=== PATIENT | male | born 1955 | race Caucasian/White ===

== ENCOUNTER 2024-12-05 03:17 | Emergency (ER) | payer MEDICARE, SELFPAY ==
[2024-12-05] VITALS (17 sets, daily range): BP systolic 156–158; BP diastolic 94–98; PULSE 60–119; RESP 12–19; TEMP 36.6; O2SAT 93–98
--- NOTE | 2024-12-05 03:15 | DI.RAD_ITS ---
Exam(s) XR CHEST 2V PA LATERAL EXAM: XR CHEST 2V PA LATERAL CLINICAL HISTORY: afib TECHNIQUE: 2D digital imaging was performed. Two views. COMPARISON: No exams were available for comparison FINDINGS: HEART: Normal size. Aorta: Not dilated. PULMONARY VASCULATURE: Normal. MEDIASTINUM: Unremarkable. LUNGS: Suboptimally inflated but clear. The right diaphragm is elevated. PLEURAL SPACE: Tiny right pleural effusion. No pneumothorax. BONE:Bilateral shoulder prostheses. SOFT TISSUES: Unremarkable. IMPRESSION: Tiny right pleural effusion. The preliminary [facility] report was reviewed. DATA REPOSITORY: RADIATION DOSE DELIVERED:
--- NOTE | 2024-12-05 03:15 | RT.EKG_ITS ---
APPROVED REPORT Exam: Resting ECG Reason for Exam: tachy, afib Patient Location: E HR:111 bpm ECG Measurements Heart Rate 111 AXIS MT [id number] P [id number] QRSd 100 QRS -25 QT 355 T 29 QTc 484 Conclusion Atrial fibrillation...? atrial activity Ventricular premature complex...V complex w/ short R-R interval Incomplete RBBB and LAFB...axis(240,-40), S>R II III aVF no ST segment or T wave abnormalities to suggest occlusive [place]
--- NOTE | 2024-12-05 03:30 | RT.EKG_ITS ---
APPROVED REPORT Exam: Resting ECG Reason for Exam: Afib Patient Location: E HR:74 bpm ECG Measurements Heart Rate 74 AXIS ID 181 P 48 QRSd 102 QRS -36 QT 415 T 12 QTc 462 Conclusion Sinus rhythm...normal P axis, V-rate 60- 99 Left axis deviation...QRS axis (-30,-90)
[2024-12-05 03:44] LABS: Abs Immature Grans 0.02 10^3/uL (0.0-0.06); HCT 44.6 % (40.0-50.0); HGB 14.9 g/dL (13.5-17.5); Immature Grans % 0.3 %; MCH 30.2 pg (27.0-33.0); MCHC 33.4 % (32.0-36.0); MCV 91 fL (80-95); MPV 9.2 fL (8.0-11.0); Platelet Count 149 10^3/uL (130-400); RBC 4.93 10^6/uL (4.36-5.78); RDW 13.0 % (11.8-14.1); RDW-SD 42.9 fL; WBC 5.95 10^3/uL (4.4-10.8)
--- NOTE | 2024-12-05 03:51 | W.ED.GENAD ---
Discharge Plan Disposition Patient Disposition: Home Condition: Good Discharge Details Clinical Impression: Paroxysmal A-fib, D-dimer, elevated Primary Care Provider: [place] ED Provider: Kaylah Schroeder Home Meds and New Rx's Prescriptions: Continued omeprazole 20 mg capsule,delayed release(DR/EC) 20 mg PO DAILY tamsulosin 0.4 mg capsule 0.4 mg PO DAILY finasteride 5 mg tablet 5 mg PO DAILY aspirin 81 mg capsule 81 mg PO DAILY coenzyme Q10 [CoQ-10] 100 mg capsule 300 mg PO BID ascorbic acid (vitamin C) [C-500] 500 mg tablet 500 mg PO DAILY Berberine ES-5 200 mg capsule 1,200 mg PO DAILY resveratrol 250 mg capsule 250 mg PO DAILY omega 3,6,1-poqxpc-wtae-fish 1,233 mg capsule 1 cap PO DAILY Discharge Instructions Instructions: Atrial Fibrillation and Atrial Flutter ED Additional Instructions: Avoid alcohol as this can provoke atrial fibrillation. Call your safety relief valve technician first thing Friday to schedule an appointment for as soon as possible to followup on your visit here. At that visit please discuss your atrial fibrillation and further discuss whether you should start taking a blood thinner. Your screening tests for blood clots was positive- this has a high false positive rate but it is possible you do have a blood clot, the most common location is in the legs. You should get an ultrasound to look for this. I have ordered one for you here- call radiology (see the handout you were given) on Friday to see when you should come in for this. After your ultrasound please come to the ED for results. If you choose not to have this done here, please mention it to your safety relief valve technician when you call them on Friday so they can arrange for an outpatient study. If that is not possible please call your primary care doctor on Friday for the same reason. Return to the emergency department for new or worsening symptoms including chest pain, shortness of breath, feel like you are going to pass out, if you feel like your heart is racing again, you have numbness or weakness, severe headache, vertigo, or if you have any other concerns. Discharge Orders Other Ambulatory Orders: US extremity venous BI (Routine) Timeframe: 1 Day Facility: [facility] - Location: DIAGNOSTIC IMAGING Ordered By: Kaylah Schroeder [facility] General Mode of arrival: ambulatory. Date/Time Provider Initiated Documentation: 12/05/24 03:23. Limitations to Documentation: no limitations. Information obtained by: patient. HPI Narrative: 69yo M with hx GERD, CAD, HLD, presenting for palpitations. Was walking up the stairs when he began to feel his HR racing; watch noted a rapid heart rate. Had a similar episode a week or two ago for which he saw his safety relief valve technician with plan for outpatient erp implementation consultant but has not started this yet. No chest pain, shortness of breath, or lightheadedness with either episode. Otherwise has felt entirely well and normal today. Did have an alcoholic beverage this evening, as well as several the day of his prior episodes. Not a daily drinker, ~ /week. No hx of HTN, DM, CHF, DE, CVA/TIA, blood clots. Otherwise in his usual state of health with no fevers, chills, rash, nausea, vomiting, pleuritic pain, recent illness, abdominal pain, diarrhea, lower extremity edema, or other concerns. Related Data Home Medications ?Medication ?Instructions ?Recorded ?Confirmed ascorbic acid (vitamin C) 500 mg 500 mg PO DAILY 12/05/24 12/05/24 tablet (C-500) aspirin 81 mg capsule 81 mg PO DAILY 12/05/24 12/05/24 coenzyme Q10 100 mg capsule 300 mg PO BID 12/05/24 12/05/24 (CoQ-10) dihydroberberine 200 mg capsule 1,200 mg PO DAILY 12/05/24 12/05/24 (Berberine ES-5) finasteride 5 mg tablet 5 mg PO DAILY 12/05/24 12/05/24 omega 3,6,9-borage seed 1 cap PO DAILY 12/05/24 12/05/24 oil-flaxseed oil-fish oil 1,233 mg capsule omeprazole 20 mg capsule,delayed 20 mg PO DAILY 12/05/24 12/05/24 release resveratrol 250 mg capsule 250 mg PO DAILY 12/05/24 12/05/24 tamsulosin 0.4 mg capsule 0.4 mg PO DAILY 12/05/24 12/05/24 General Stated Complaint: Arrhythmia IRIS: 3 Review of Systems Narrative: see HPI Exam Narrative Exam Narrative: General: Alert, well appearing, well nourished, in no acute distress. Head: Normocephalic, atraumatic Neck: Trachea midline, ?Neck supple. ENT: ?MMM.? Cardiac: ?RRR, no murmurs appreciated Resp: No respiratory distress. CTAB. Abd: ?Soft, non-distended, nontender Extremities: ?No deformities.? No peripheral edema. Neurologic: GCS 15. ? Moves all extremities freely against gravity Course Vital Signs Vital signs: Vital Signs Temperature 36.6 C 12/05/24 03:21 Pulse 113 H 12/05/24 03:21 Respiratory Rate 18 12/05/24 03:21 Pulse Oximetry 98 12/05/24 03:21 Temperature 36.6 C 12/05/24 03:21 Temperature Source Oral 12/05/24 03:21 Pulse 113 H 12/05/24 03:21 Respiratory Rate 18 12/05/24 03:21 Blood Pressure 156/94 H 12/05/24 03:31 Blood Pressure Mean 114 12/05/24 03:31 Blood Pressure Position Supine 12/05/24 03:21 Pulse Oximetry 98 12/05/24 03:21 Oxygen Delivery Method Room Air 12/05/24 03:21 Oxygen Flow Rate 0 12/05/24 03:21 Pain Level 0 12/05/24 03:21 Lab/Test Results Lab/Test Results: Laboratory Tests Range/Units 12/05/24 03:37 WBC (4.4-10.8) 10^3/uL 5.95 RBC (4.36-5.78) 10^6/uL 4.93 Hgb (13.5-17.5) g/dL 14.9 Hct (40.0-50.0) % 44.6 MCV (80-95) fL 91 MCH (27.0-33.0) pg 30.2 MCHC (32.0-36.0) % 33.4 RDW (11.8-14.1) % 13.0 Plt Count (130-400) 10^3/uL 149 MPV (8.0-11.0) fL 9.2 Immature Gran % % 0.3 Neutrophils % % 55.6 Lymphocytes % % 31.3 Monocytes % % 9.7 Eosinophils % % 2.4 Basophils % % 0.7 Nucleated RBC % (0.0-0.3) % 0.0 Absolute Neutrophils (1.2-6.7) 10^3/uL 3.31 Absolute Lymphocytes (1.2-3.4) 10^3/uL 1.86 Absolute Monocytes (0.1-0.8) 10^3/uL 0.58 Absolute Eosinophils (0.0-0.7) 10^3/uL 0.14 Absolute Basophils (0.0-0.2) 10^3/uL 0.04 Medical Decision Making 69yo M with hx GERD, CAD, HLD, presenting for palpitations. Was walking up the stairs when he began to feel his HR racing; watch noted a rapid heart rate. Had a similar episode a week or two ago for which he saw his safety relief valve technician with plan for outpatient erp implementation consultant but has not started this yet. No chest pain, shortness of breath, or lightheadedness with either episode. Did have ETOH before both events. Otherwise entirely in his usual state of health. HR 110's-120 on arrival, vital signs otherwise reassuring on arrival, on the monitor irregular and appears to be afib. EKG on arrival afib, rate 110's, no ST segment or T wave abnormalities to suggest occlusive DE. Well appearing on my assessment shortly thereafter, HR regular, appears sinus on the monitor. Repeat EKG obtained and is sinus with rate in 70's. Very well appearing on exam, lungs CTAB. Not septic. Aside from ETOH, no clear provoking factors on history; will evaluate with labs, CXR. -Labs reviewed as below, CBC reassuring with no leukocytosis or anemia, CMP with borderline hyponatremia at 134 and no actionable abnormalities, Mg normal, TSH normal, coags normal, dimer elevated at ~1000 (will get CTA), BNP not suggestive of heart failure, initial troponin 14 with one hour repeat 13 (no signficant change); would not further puruse ACS/trend troponins. -CXR independently reviewed; no focal pneumonia or pneumothorax on my view, radiology read with trace pleural effusions. -CT independently reviewed; no large saddle embolus and no pleural effusions on my view (? atelectasis right lung base), radiology read with no acute findings. On reassessment he remains well appearing, symptom free, HR in 60's -70's and NSR on monitor. [id number] score 1 (~0.5-1%/year risk), HAS-BLED 2 (moderate risk of major bleeding, ~2/100 pt years). Would be reasonable to start DOAC in the ED, especially with elevated dimer of unknown etiology. Shared decision making with patient; he is opposed to starting AC at this time but is willing to discuss further with his safety relief valve technician which I think is reasonable, certainly low absolute risk of thromboembolic event in the next 48 hours. Will get outpatient DVT ultrasound (though no clincal s/s of DVT, would also not empirically treat for this at this time). Will discharge home to close outpatient followup with his safety relief valve technician; he was advised to call on Friday (states he is usually able to get in to see him within a week). Discharged home; discharge instructions and return precautions were reviewed with patient who verbalized understanding. All questions were answered and he is in full agreement with the plan. IMPRESSION: 1. No acute findings to explain reported symptoms. 2. Nonacute findings as outlined above. Lab Data Lab results reviewed: Yes I reviewed the patient's lab results. Labs: Laboratory Tests Range/Units 12/05/24 12/05/24 03:37 04:40 WBC (4.4-10.8) 10^3/uL 5.95 RBC (4.36-5.78) 10^6/uL 4.93 Hgb (13.5-17.5) g/dL 14.9 Hct (40.0-50.0) % 44.6 MCV (80-95) fL 91 MCH (27.0-33.0) pg 30.2 MCHC (32.0-36.0) % 33.4 RDW (11.8-14.1) % 13.0 Plt Count (130-400) 10^3/uL 149 MPV (8.0-11.0) fL 9.2 Immature Gran % % 0.3 Neutrophils % % 55.6 Lymphocytes % % 31.3 Monocytes % % 9.7 Eosinophils % % 2.4 Basophils % % 0.7 Nucleated RBC % (0.0-0.3) % 0.0 Absolute Neutrophils (1.2-6.7) 10^3/uL 3.31 Absolute Lymphocytes (1.2-3.4) 10^3/uL 1.86 Absolute Monocytes (0.1-0.8) 10^3/uL 0.58 Absolute Eosinophils (0.0-0.7) 10^3/uL 0.14 Absolute Basophils (0.0-0.2) 10^3/uL 0.04 PT (9.1-11.1) sec 9.9 INR (0.9-1.1) 1.0 APTT (20.6-30.2) sec 27.1 D-Dimer (<500) ng/mlFEU 1098 H Sodium (136-145) mmol/L 134 L Potassium (3.5-5.1) mmol/L 3.5 Chloride (98-107) mmol/L 102 Carbon Dioxide (21.0-32.0) mmol/L 27.8 Anion Gap (3-11) mmol/L 4.2 BUN (7-18) mg/dL 22 H Creatinine (0.70-1.30) mg/dL 1.1 Est GFR (CKD-EPI 2020) (mL/min/1.73m2) 72.22 Glucose (74-106) mg/dL 102 Calcium (8.5-10.1) mg/dL 8.7 Magnesium (1.8-2.4) mg/dL 2.0 Total Bilirubin (0.2-1.0) mg/dL 0.9 AST (15-37) U/L 30 ALT (16-63) U/L 42 Alkaline Phosphatase (46-116) U/L 97 Troponin I (<or=76) ng/L 14 13 NT-Pro-B Natriuret Pep (<300) pg/mL 50 Total Protein (6.4-8.2) g/dL 6.9 Albumin (3.4-5.0) g/dL 3.6 TSH (0.36-3.74) uIU/mL 3.05 PFSH All Active Problems (Updated 12/05/24 @ 05:28 by Kaylah Schroeder MD) D-dimer, elevated (Acute) Paroxysmal A-fib (Acute) Social History Smoking/Tobacco Use Status: Never Smoking risk assessment performed?: Yes Alcohol Intake: current Alcohol Intake frequency: a few times a month Alcohol type: beer Drug use: Never Substance use type: does not use Housing: house Do you feel safe at home: Yes Do you feel safe in your relationship?: Yes
[2024-12-05 03:57] LABS: INR 1.0 (0.9-1.1); PTT Activated 27.1 sec (20.6-30.2); Prothrombin Time 9.9 sec (9.1-11.1)
--- NOTE | 2024-12-05 04:00 | DI.CT_ITS ---
Exam(s) CT CHEST PE CTA EXAM: CT CHEST PE CTA CLINICAL HISTORY: new afib, + dimer. TECHNIQUE: Imaging Protocol: Axial CT angiography was performed with multi- slice acquisition and multi-planar reconstructions as well as axial, coronal and sagittal MIP reconstructions. Computer aided detection (CAD) was utilized. CONTRAST MATERIAL: Intravenous: Omnipaque 350 Contrast volume:100 ml COMPARISON: CR,XR XR CHEST 2V PA LATERAL from 12/05/2024 FINDINGS: Pulmonary Arteries: No evidence of filling defect to suggest pulmonary emboli. Mediastinum and Michell: No dominant adenopathy or fluid collection. Pulmonary parenchyma: The lungs are expiratory. Right basilar atelectasis. No consolidation or dominant measurable mass. Pleura: No effusion or pneumothorax. Slight blunting of the lateral right costophrenic angle but no evidence of effusion. Heart: The heart is not dilated. Moderate coronary artery calcifications are seen. Aorta: Thoracic aorta non-dilated. No dissection. Upper abdomen: No acute findings. No obstructing stone at the upper pole of the left kidney. The liver does not appear enlarged. The right diaphragm is elevated. There is a large amount of intra-abdominal fat. Bones: Bilateral shoulder prostheses. Tubes, Catheters, and Lines: None Soft tissues: Unremarkable. IMPRESSION: No evidence of pulmonary embolism. Elevated right diaphragm with adjacent atelectasis. No evidence of effusion. The preliminary [facility] report was reviewed. RADIATION DOSE DELIVERED: Total DLP DATA REPOSITORY: All CT scans at this facility are submitted to the National Radiology Data Registry (NRDR) Dose Index Registry (DIR) with the [employer] (ACR). RADIATION OPTIMIZATION: All CT scans at this facility use at least one of these dose optimization techniques: automated exposure control; mA and/or kV adjustment per patient size (includes targeted exams where dose is matched to clinical indication); or iterative reconstruction.
[2024-12-05 04:03] LABS: Troponin I 14 ng/L (<or=76)
[2024-12-05 04:08] LABS: D-Dimer 1098 ng/mlFEU (<500)
[2024-12-05 04:10] LABS: ALT 42 U/L (16-63); AST 30 U/L (15-37); Albumin 3.6 g/dL (3.4-5.0); Alkaline Phosphatase 97 U/L (46-116); Anion Gap 4.2 mmol/L (3-11); BUN 22 mg/dL (7-18); Bilirubin, Total 0.9 mg/dL (0.2-1.0); CO2 27.8 mmol/L (21.0-32.0); Calcium 8.7 mg/dL (8.5-10.1); Chloride 102 mmol/L (98-107); Estimated GFR 72.22 (mL/min/1.73m2); Glucose 102 mg/dL (74-106); Magnesium 2.0 mg/dL (1.8-2.4); NT-proBNP 50 pg/mL (<300); Potassium 3.5 mmol/L (3.5-5.1); Sodium 134 mmol/L (136-145); TSH (W/Ref FT4) 3.05 uIU/mL (0.36-3.74); Total Protein 6.9 g/dL (6.4-8.2)
[2024-12-05] MEDS: Normal Saline - Diluent 50 ML VIAL IJ (04:34)
[2024-12-05] MEDS: Omnipaque 350 MG/ML 100 ML BTL IJ (04:34)
[2024-12-05] MEDS: Normal Saline Flush 10 ML SYR IVP (04:34)
--- NOTE | 2024-12-05 04:36 | DI.[facility]_ITS ---
PROCEDURE INFORMATION: Exam: XR Chest Exam date and time: 12/05/2024 4:01 AM Age: 69 years old Clinical indication: Other: Afib TECHNIQUE: Imaging protocol: Radiologic exam of the chest. Views: 2 views. COMPARISON: No relevant prior studies available. FINDINGS: Lungs: No focal consolidation seen. Pleural spaces: Trace bilateral pleural effusions. Heart/Mediastinum: No cardiomegaly. Diaphragm: Elevated hemidiaphragm. Bones/joints: Bilateral shoulder prostheses. IMPRESSION: Trace pleural effusions. Dictated and Authenticated by: Shanae Jonier MD. Orderin Elda Adrian MD
--- NOTE | 2024-12-05 04:56 | DI.[facility]_ITS ---
PROCEDURE INFORMATION: Exam: CTA Chest With Contrast Exam date and time: 12/05/2024 4:29 AM Age: 69 years old Clinical indication: Other: New afib, + dimer TECHNIQUE: Imaging protocol: Computed tomographic angiography of the chest with contrast. Exam focused on the arteries. 3D rendering (Not supervised by radiologist): MIP and/or 3D reconstructed images were created by the technologist. Contrast material: OMNI 350; Contrast volume: 100 ml; Contrast route: INTRAVENOUS (IV); COMPARISON: No relevant prior studies are available for comparison. FINDINGS: Limitations: Artifact from metallic hardware limits evaluation of the surrounding tissues. Mild motion artifact. Pulmonary arteries: No pulmonary embolus appreciated. Aorta: No thoracic aortic aneurysm seen. Lungs: Ground-glass opacity at the right lung base, likely underinflation. Pleural spaces: No pleural effusion. Heart: No pericardial effusion. Coronary arteries: Coronary artery calcifications. Lymph nodes: No acute abnormality seen. Diaphragm: Elevated right hemidiaphragm. Kidneys: Nonobstructing right renal calculus. Bones/joints: No acute pertinent abnormality seen. Soft tissues: No acute pertinent abnormality seen. IMPRESSION: 1. No acute findings to explain reported symptoms. 2. Nonacute findings as outlined above. Dictated and Authenticated by: Shanae Joiner MD. Orderin Elda Adrian MD
[2024-12-05 05:13] LABS: Troponin I 13 ng/L (<or=76)
--- NOTE | 2024-12-06 09:37 | NUR.NOTE ---
Nursing Note: received call from patient requesting his outpatient ultrasound order be sent to [facility] in [place], [place]. Order was faxed to [phone]
== END 2024-12-05 05:28 | disposition home or self-care (01) ==
PROVIDERS: Emergency Provider Student in an Organized Health Care Education/Training Program; PCP Family Medicine
DX: I48.0 Paroxysmal atrial fibrillation (principal); R79.89 Other specified abnormal findings of blood chemistry; Z86.79 Personal history of other diseases of the circulatory system
CPT/HCPCS: 99284; 99285; 36415; 71275; 80053; 93005; 71046; 83735; 83880; 84443; 84484; 85025; 85379; 85610; 85730; 93010; J3490